=== PATIENT | female | born 1990 | race Caucasian/White ===

== ENCOUNTER → 2024-03-03 10:51 | Outpatient (REF) | payer BC, SELFPAY | LOC: MRI 3T 10:51 | PROVIDERS: ATTENDING PHYSICIAN Surgery | DX: Z91.89 Other specified personal risk factors, not elsewhere classified (principal); R92.30 Dense breasts, unspecified | CPT/HCPCS: 77049; A9585 ==

== ENCOUNTER → 2025-06-26 07:57 | Outpatient (REF) | payer BC, SELFPAY | LOC: WDC 07:57 | PROVIDERS: ATTENDING PHYSICIAN Nurse Practitioner Adult Health | DX: R92.8 Other abnormal and inconclusive findings on diagnostic imaging of breast (principal); Z80.3 Family history of malignant neoplasm of breast; Z91.89 Other specified personal risk factors, not elsewhere classified; R92.2 Inconclusive mammogram | CPT/HCPCS: 76642 ==

== ENCOUNTER → 2025-08-16 20:04 | Outpatient (REF) | payer BC, SELFPAY | LOC: MRI 3T 20:04 | PROVIDERS: ATTENDING PHYSICIAN Nurse Practitioner Adult Health; FAMILY PHYSICIAN Family Medicine | DX: R92.2 Inconclusive mammogram (principal); Z80.3 Family history of malignant neoplasm of breast; Z91.89 Other specified personal risk factors, not elsewhere classified | CPT/HCPCS: 77049; A9585 ==

== ENCOUNTER → 2025-08-28 13:00 | Outpatient (REF) | payer BC, SELFPAY | LOC: WDC 13:00 | PROVIDERS: ATTENDING PHYSICIAN Surgery; FAMILY PHYSICIAN Family Medicine | DX: R92.8 Other abnormal and inconclusive findings on diagnostic imaging of breast (principal) | CPT/HCPCS: 76642 ==